=== PATIENT | male | born 1975 | race Caucasian/White ===

== ENCOUNTER 2021-01-31 20:21 | Emergency (ER) | payer OTHER ==
[~2021-01-31] VITALS: Ht 182.9 cm; Wt 76.7 kg
--- NOTE | 2021-01-31 21:15 | NUR ---
PT PLACED ON ALL ROOM MONITORING. PT ANXIOUS, PACING AT TIMES, SITTING ON BED, REMOVING BP CUFF AND PULSE OX. PT STATES HE'S CONCERNED HE OVERDID IT WITH SUPPLEMENTS, HX OF SYNCOPE AND ANXIETY WITH SUPPLEMENTS BEFORE. VSS. ERP IN TO SEE PT.
[2021-01-31 21:40] LABS: BASOPHILS % (AUTO) 2 % (0-1); EOSINOPHILS % (AUTO) 2 % (1-7); LYMPHOCYTES % (AUTO) 19 % (22-44); MEAN CORPUSCULAR HEMOGLOBIN 30.4 pg (27.5-34.5); MEAN CORPUSCULAR HGB CONC 33.7 g/dL (33.2-36.2); MEAN PLATELET VOLUME 8.7 fL (7.4-10.4); MONOCYTES % (AUTO) 11 % (2-9); NEUTROPHILS % (AUTO) 67 % (42-75); PLATELET COUNT 243 x10^3/uL (130-400); RED BLOOD COUNT 5.34 x10^6/uL (4.38-5.82); RED CELL DISTRIBUTION WIDTH 13.7 % (9.4-14.8)
[2021-01-31 21:41] LABS: MD NO
[2021-01-31 21:50] LABS: ALBUMIN 4.4 g/dL (3.4-5.0); ANION GAP 5 mmol/L (5-15); CHLORIDE 105 mmol/L (98-107); CREATININE 1.36 mg/dL (0.7-1.3)
[2021-01-31 21:53] LABS: TROPONIN I < 0.015 ng/mL (0.000-0.045)
--- NOTE | 2021-01-31 22:00 | NUR ---
Report received from EVERARDO Ramos. This RN to assume care.
--- NOTE | 2021-01-31 22:00 | NUR ---
REPORT TO JQ, TRANSFER OF CARE AT THIS TIME.
[2021-01-31] MEDS ORDERED: hydrOXyzine 50MG TABLET ONE (22:20)
--- NOTE | 2021-01-31 22:25 | NUR ---
Patient anxious. States he has no hx of same but is feeling anxious because of the situation. Medicated patient per mar.
[2021-01-31 22:54] VITALS: BP 116/77
== END 2021-01-31 22:56 | disposition home or self-care (01) ==
LOC: ED 22:33
DX: R55 Syncope and collapse (principal); R42 Dizziness and giddiness; R94.31 Abnormal electrocardiogram [ECG] [EKG]; G43.909 Migraine, unspecified, not intractable, without status migrainosus
CPT/HCPCS: 36415; 80048; 82040; 84484; 85025; 93005; 99284; Q0177